=== PATIENT | female | born 2000 | race Caucasian/White ===

== ENCOUNTER 2021-05-13 15:27 | Outpatient (CLI) | payer OTHER ==
[~2021-05-13] VITALS: Ht 154.9 cm; Wt 77.7 kg
[2021-05-13 15:43] VITALS: BP 114/68
[2021-05-13] MEDS ORDERED: PRENTAB9 PO ×3 (15:48)
[2021-05-13] MEDS ORDERED: LR 1,000 ML IV ONE (16:40)
[2021-05-13] MEDS ORDERED: BETAMETHASONE SOLUSPAN 6MG/ML 5ML VIAL (J0702 PER 3MG) IM SCH (17:00)
[2021-05-13 17:10] LABS: HEMATOCRIT 33.9 % (36.0-47.0); HEMOGLOBIN 11.2 g/dl (12.0-15.5); MEAN CORPUSCULAR HEMOGLOBIN 30.2 pg (27.0-33.0); MEAN CORPUSCULAR VOLUME 91.4 fl (80.0-96.0); PLATELET COUNT, AUTOMATED 246 10^3/uL (150-450); RED BLOOD COUNT 3.71 10^6/uL (4.00-5.40); WHITE BLOOD COUNT 13.4 10^3/uL (4.0-10.0)
[2021-05-13 17:18] VITALS: BP 99/56
[2021-05-13 17:25] LABS: APPEARANCE, URINE CLOUDY (CLEAR); BACTERIA, URINE AUTO NEGATIVE (NEGATIVE); BILIRUBIN, URINE AUTO NEGATIVE (NEGATIVE); BLOOD, URINE BLOOD 1+ (NEGATIVE); COLOR, URINE AMBER (YELLOW); GLUCOSE, URINE (UA) AUTO NEGATIVE (NEGATIVE); KETONE, URINE AUTO 1+ mg/dL (NEGATIVE); LEUKOCYTE ESTERASE, URINE AUTO 1+ (NEGATIVE); MUCUS, URINE LARGE (NEGATIVE); NITRITE, URINE AUTO NEGATIVE (NEGATIVE); PROTEIN, URINE AUTO 2+ mg/dL (NEGATIVE); RBC, URINE AUTO 57 /HPF (0-3); SQUAMOUS EPITHELIAL CELL UR AU 7 /HPF (0-6); WBC, URINE AUTO 10 /HPF (0-3)
--- NOTE | 2021-05-13 18:18 | REP ---
INDICATION: previous classical now 34 weks tarah COMPARISON: None. TECHNIQUE: Transabdominal obstetrical ultrasound with color Doppler evaluation. FINDINGS: Examination demonstrates a single live intrauterine in breech presentation. motion is identified by technologist. Placenta is noted fundal and grade 2 without evidence for placenta previa or abruption. Amniotic fluid volume is normal. Cervix measures 3.5 cm in length and appears closed Technologist describes myometrial thinning in the lower uterine segment measuring roughly 2.0 mm thickness. Selected gestational age: 33 weeks 4 days with VAMSHI 06/27/2021. Gestational age by current measurements 35 weeks 0 days with VAMSHI 06/17/2021. FHR equals 155 beats per minute. BPD: 8.8 cm at 35 weeks 4 days HC: 31.7 cm at 35 weeks 5 days AC: 30.5 cm at 34 weeks 3 days FL: 6.7 cm at 34 weeks 2 days HL: 6.0 cm at 34 weeks 5 days HC/AC: 1.04 Estimated weight 2483 grams (74thpercentile). LAWRENCE: 12.4 cm (8.2-24.7) Umbilical artery SD ratio: 2.57 (1.75-3.72) Biophysical profile score: 8/8 IMPRESSION: Single live advanced gestation in breech presentation demonstrating appropriate estimated weight and amniotic fluid volume. Biophysical profile score equals 8/8. <Electronically signed by Emmanuel Barron > 05/13/21 6204
[2021-05-13 18:29] VITALS: BP 104/55
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
[2021-05-13 21:31] VITALS: BP 117/68
[2021-05-13] MEDS ORDERED: LR 1,000 ML IV SCH (21:35)
--- NOTE | 2021-05-13 23:59 | IPNPDOC ---
Text Note Date of Service The patient was seen on 05/13/21. NOTE 05/13/21 reviewed all lab results patient requested to go home and return velma orrow for her second beta shot reviewed signs labor and uterine pain if need rtc for evaluation. patient still dehydrated despite litre of fluid encouraged to drink more . discharged undelivered VS,Fishbone, I+O VS, Fishbone, I+O Laboratory Tests 05/13/21 16:52 Vital Signs Date Time Temp Pulse Resp B/P (MAP) Pulse Ox O2 Delivery O2 Flow Rate FiO2 05/13/21 21:31 98.4 80 117/68 (84) 05/13/21 18:29 18 Arash Bella MD May 13, 2021 23:59
== END 2021-05-13 21:45 | disposition home or self-care (01) ==
LOC: M LDO 15:27
PROVIDERS: ATTEND Obstetrics & Gynecology
DX: O60.03 Preterm labor without delivery, third trimester (principal); O34.211 Maternal care for low transverse scar from previous cesarean delivery; Z3A.34 34 weeks gestation of pregnancy; Z91.040 Latex allergy status
CPT/HCPCS: 59025; 76811; 76817; 76819; 76820; 81001; 85027; 87086; 96360; 96361; 96372; G0378; G0463; J0702; U0002

== ENCOUNTER 2021-05-14 17:13 | Outpatient (CLI) | payer OTHER ==
[~2021-05-14] VITALS: Ht 154.9 cm; Wt 79.7 kg
[~2021-05-14 17:13] MED LIST: PRENTAB9 PO
[2021-05-14] MEDS ORDERED: BETAMETHASONE SOLUSPAN 6MG/ML 5ML VIAL (J0702 PER 3MG) IM ONE (17:25)
[2021-05-14 17:32] VITALS: BP 104/58
[2021-05-14 18:27] LABS: APPEARANCE, URINE CLEAR (CLEAR); BACTERIA, URINE AUTO 1+ (NEGATIVE); BILIRUBIN, URINE AUTO NEGATIVE (NEGATIVE); BLOOD, URINE BLOOD 1+ (NEGATIVE); COLOR, URINE YELLOW (YELLOW); GLUCOSE, URINE (UA) AUTO NEGATIVE (NEGATIVE); KETONE, URINE AUTO NEGATIVE (NEGATIVE); LEUKOCYTE ESTERASE, URINE AUTO TRACE (NEGATIVE); NITRITE, URINE AUTO NEGATIVE (NEGATIVE); PROTEIN, URINE AUTO NEGATIVE (NEGATIVE); RBC, URINE AUTO 3 /HPF (0-3); SPECIFIC GRAVITY URINE AUTO 1.006 (1.002-1.035); SQUAMOUS EPITHELIAL CELL UR AU 1 /HPF (0-6); UROBILINOGEN, URINE AUTO 0.2 mg/dL (0.0-2.0); WBC, URINE AUTO 1 /HPF (0-3)
--- NOTE | 2021-05-14 18:51 | REP ---
INDICATION: history contractions previous cs x 3 COMPARISON: 05/13/2021 TECHNIQUE: Transabdominal obstetrical ultrasound with color Doppler evaluation. FINDINGS: Examination demonstrates a single live intrauterine in breech presentation. motion is identified by technologist. Placenta is noted fundal and grade 2 without evidence for placenta previa or abruption. Amniotic fluid volume is normal. Cervix measures 3.2 cm in length and appears closed. Myometrium at the level of the lower uterine segment measures 1.5 mm thickness. Selected gestational age: 33 weeks 5 days with VAMSHI 06/27/2021. FHR equals 131 beats per minute. LAWRENCE: 13.0 cm (8.2-24.7) Umbilical artery SD ratio: 1.96 (1.75-3.71) Biophysical profile score: 8/8 IMPRESSION: 1. Single live intrauterine in breech presentation demonstrating normal amniotic fluid volume and biophysical profile score. 2. Myometrial thickness at the lower uterine segment measures down to 1.5 mm. <Electronically signed by Emmanuel Barron > 05/14/21 3648
--- NOTE | 2021-05-14 20:27 | IPNPDOC ---
Text Note Date of Service The patient was seen on 05/14/21. NOTE Vital Signs Label Value Date Time Blood Pressure Assessment 104/58 (73) 05/14/21 1732 Blood Pressure Assessment 104/58 (73) 05/14/21 1732 Source Automatic Cuff (NIBP) Respiratory Rate 18 bpm 05/14/21 1732 Respiratory Rate 18 bpm 05/14/21 1732 Pulse 79 05/14/21 1732 Pulse 79 05/14/21 1732 Patient Temperature 99.0 degrees F 05/14/21 1732 Temperature Source Temporal 05/14/21 1732 Patient Temperature 99.0 degrees F 05/14/21 1732 Temperature Source Temporal 05/14/21 1732 Item Value Date Time Urine Color YELLOW 05/14/21 1801 Urine Appearance CLEAR 05/14/21 1801 Urine pH 6.0 UNITS 05/14/21 1801 Urine Specific [place] 1.006 05/14/21 1801 Urine Protein NEGATIVE mg/dL 05/14/21 1801 Urine Glucose (Auto)(UA) NEGATIVE mg/dL 05/14/21 1801 Urine Ketones (Auto) NEGATIVE mg/dL 05/14/21 1801 Urine Blood 1+ H 05/14/21 1801 Urine Nitrite NEGATIVE 05/14/21 1801 Urine Bilirubin NEGATIVE 05/14/21 1801 Urine Urobilinogen 0.2 mg/dL 05/14/21 1801 Urine Leukocyte Esterase (Auto) TRACE H 05/14/21 1801 Urine WBC (Auto) 1 /HPF 05/14/21 1801 Urine RBC (Auto) 3 /HPF 05/14/21 1801 Urine Hyaline Casts (Auto) 0 /LPF 05/14/21 1801 Urine Bacteria (Auto) 1+ H 05/14/21 1801 Urine Squamous Epithelial Cells 1 /HPF 05/14/21 1801 05/14/21 1743 pm PATIENT SEEN TODAY SCHEDULED APPOINTMENT FOR SECOND BETA SHOT REVIEW US WITH BPP AND URINE EVALUATION. PATIENT DID NOT EAT TODAY DID DRINK APPROPRIATE FLUIDS. UTERINE IRRITABILITY SAME LAST 3 DAYS NO INCREASE NO DECREASE INTENSITY, PATIENT STILL FEELS SHOULD HAVE REPEAT CS NOW AT 33.6 WEEKS PER HER PROVIDER IF HAVING CONTRACTIONS PRIOR TO SCHEDULED CS AT 37 WEEKS 06/06/21. TODAY URINE IMPROVED US WITH BPP SAME NO CHANGE BPP 8/8 CERVIX NO FUNNELING LAWRENCE NORMAL STILL BREECH. REVIEWED ALL RESULTS REVIEWED INCISION SITE OFFERED OPTION TERBUTALINE FOR UTERINE IRRITABILITY . PATIENT REQUESTED TO SEE NEW PROVIDER TOMORROW GAVE NUMBER TO CALL ALSO REVIEWED PROM LABOR BLEEDING [facility] INCISIONAL ACUTE PAIN. EXPRESSED UNDERSTANDING DISCHARGED UNDELIVERED . SPENT OVER 60 MINUTES EDUCATIONAL COMPONENT PRIOR TO DISCHARGE . NAME: SALLIE ANGELES DATE OF : 2000 AGE: 21 SEX: F REPORT #: [id number] ROOM: [facility] TECHNOLOGIST: LEANNA DOCTOR: Arash Bella MD Ordered for Date&Time: 05/13/21 1640 cc: [~ rep ct ivnm] Service Date&Time: 05/13/21 3044 EXAMINATION REQUESTED: US OBS SINGEL GEST REASON FOR PATIENT VISIT: LABOR CHECK REASON FOR EXAM/COMMENT: previous classical now 34 weks tarah INDICATION: previous classical now 34 weks tarah COMPARISON: None. TECHNIQUE: Transabdominal obstetrical ultrasound with color Doppler evaluation. FINDINGS: Examination demonstrates a single live intrauterine in breech presentation. motion is identified by technologist. Placenta is noted fundal and grade 2 without evidence for placenta previa or abruption. Amniotic fluid volume is normal. Cervix measures 3.5 cm in length and appears closed Technologist describes myometrial thinning in the lower uterine segment measuring roughly 2.0 mm thickness. Selected gestational age: 33 weeks 4 days with VAMSHI 06/27/2021. Gestational age by current measurements 35 weeks 0 days with VAMSHI 06/17/2021. FHR equals 155 beats per minute. BPD: 8.8 cm at 35 weeks 4 days HC: 31.7 cm at 35 weeks 5 days AC: 30.5 cm at 34 weeks 3 days FL: 6.7 cm at 34 weeks 2 days HL: 6.0 cm at 34 weeks 5 days HC/AC: 1.04 Estimated weight 2483 grams (74thpercentile). LAWRENCE: 12.4 cm (8.2-24.7) Umbilical artery SD ratio: 2.57 (1.75-3.72) Biophysical profile score: 8/8 IMPRESSION: Single live advanced gestation in breech presentation demonstrating appropriate estimated weight and amniotic fluid volume. Biophysical profile score equals 8/8. NAME: SALLIE ANGELES DATE OF : 2000 AGE: 21 SEX: F REPORT #: [id number] [facility] TECHNOLOGIST: LEANNA DOCTOR: Arash Bella MD Ordered for Date&Time: 05/13/21 1640 cc: [~ rep ct ivnm] Service Date&Time: 05/13/211756 EXAMINATION REQUESTED: US OBS SINGEL GEST REASON FOR PATIENT VISIT: LABOR CHECK REASON FOR EXAM/COMMENT: previous classical now 34 weks tarah INDICATION: previous classical now 34 weks tarah COMPARISON: None. TECHNIQUE: Transabdominal obstetrical ultrasound with color Doppler evaluation. FINDINGS: Examination demonstrates a single live intrauterine in breech presentation. motion is identified by technologist. Placenta is noted fundal and grade 2 without evidence for placenta previa or abruption. Amniotic fluid volume is normal. Cervix measures 3.5 cm in length and appears closed Technologist describes myometrial thinning in the lower uterine segment measuring roughly 2.0 mm thickness. Selected gestational age: 33 weeks 4 days with VAMSHI 06/27/2021. Gestational age by current measurements 35 weeks 0 days with VAMSHI 06/17/2021. FHR equals 155 beats per minute. BPD: 8.8 cm at 35 weeks 4 days HC: 31.7 cm at 35 weeks 5 days AC: 30.5 cm at 34 weeks 3 days FL: 6.7 cm at 34 weeks 2 days HL: 6.0 cm at 34 weeks 5 days HC/AC: 1.04 Estimated weight 2483 grams (74thpercentile). LAWRENCE: 12.4 cm (8.2-24.7) Umbilical artery SD ratio: 2.57 (1.75-3.72) Biophysical profile score: 8/8 IMPRESSION: Single live advanced gestation in breech presentation demonstrating appropriate estimated weight and amniotic fluid volume. Biophysical profile score equals 8/8. <Electronically signed by Emmanuel Barron > 05/13/211813 NAME: SALLIE ANGELES DATE OF : 2000 AGE: 21 SEX: F REPORT #: [id number] ROOM: [facility] TECHNOLOGIST: LEANNA DOCTOR: Arash Bella MD Ordered for Date&Time: 05/13/21 1640 cc: [~ rep ct ivnm] Service Date&Time: 05/13/211756 EXAMINATION REQUESTED: US OBS SINGEL GEST REASON FOR PATIENT VISIT: LABOR CHECK REASON FOR EXAM/COMMENT: previous classical 34 weks tarah INDICATION: previous classical weks tarah COMPARISON: None. TECHNIQUE: Transabdominal obstetrical ultrasound with color Doppler evaluation. FINDINGS: Examination demonstrates a single live intrauterine in breech presentation. motion is identified by technologist. Placenta is noted fundal and grade 2 without evidence for placenta previa or abruption. Amniotic fluid volume is normal. Cervix measures 3.5 cm in length and appears closed Technologist describes myometrial thinning in the lower uterine segment measuring roughly 2.0 mm thickness. Selected gestational age: 33 weeks 4 days with VAMSHI 06/27/2021. Gestational age by current measurements 35 weeks 0 days with VAMSHI 06/17/2021. FHR equals 155 beats per minute. BPD: 8.8 cm at 35 weeks 4 days HC: 31.7 cm at 35 weeks 5 days AC: 30.5 cm at 34 weeks 3 days FL: 6.7 cm at 34 weeks 2 days HL: 6.0 cm at 34 weeks 5 days HC/AC: 1.04 Estimated weight 2483 grams (74thpercentile). LAWRENCE: 12.4 cm (8.2-24.7) Umbilical artery SD ratio: 2.57 (1.75-3.72) Biophysical profile score: 8/8 IMPRESSION: Single live advanced gestation in breech presentation demonstrating appropriate estimated weight and amniotic fluid volume. Biophysical profile score equals 8/8. <Electronically signed by Emmanuel Barron > 05/13/211813 NAME: SALLIE ANGELES DATE OF : 2000 AGE: 21 SEX: F REPORT #: [id number] ROOM: [facility] TECHNOLOGIST: LEANNA DOCTOR: Arash Bella MD Ordered for Date&Time: 05/13/21 1640 cc: [~ rep ct ivnm] Service Date&Time: 05/13/211756 EXAMINATION REQUESTED: US OBS SINGEL GEST REASON FOR PATIENT VISIT: LABOR CHECK REASON FOR EXAM/COMMENT: previous classical 34 weks tarah INDICATION: previous classical now 34 weks tarah COMPARISON: None. TECHNIQUE: Transabdominal obstetrical ultrasound with color Doppler evaluation. FINDINGS: Examination demonstrates a single live intrauterine in breech presentation. motion is identified by technologist. Placenta is noted fundal and grade 2 without evidence for placenta previa or abruption. Amniotic fluid volume is normal. Cervix measures 3.5 cm in length and appears closed Technologist describes myometrial thinning in the lower uterine segment measuring roughly 2.0 mm thickness. Selected gestational age: 33 weeks 4 days with VAMSHI 06/27/2021. Gestational age by current measurements 35 weeks 0 days with VAMSHI 06/17/2021. FHR equals 155 beats per minute. BPD: 8.8 cm at 35 weeks 4 days HC: 31.7 cm at 35 weeks 5 days AC: 30.5 cm at 34 weeks 3 days FL: 6.7 cm at 34 weeks 2 days HL: 6.0 cm at 34 weeks 5 days HC/AC: 1.04 Estimated weight 2483 grams (74thpercentile). LAWRENCE: 12.4 cm (8.2-24.7) Umbilical artery SD ratio: 2.57 (1.75-3.72) Biophysical profile score: 03/12 IMPRESSION: Single live advanced gestation in breech presentation demonstrating appropriate estimated weight and amniotic fluid volume. EXAMINATION REQUESTED: BPP W/O NON STRESS TEST REASON FOR PATIENT VISIT: BETA INJECTION REASON FOR EXAM/COMMENT: history contractions previous cs x 3 INDICATION: history contractions previous cs x 3 COMPARISON: 05/13/2021 TECHNIQUE: Transabdominal obstetrical ultrasound with color Doppler evaluation. FINDINGS: Examination demonstrates a single live intrauterine in breech presentation. motion is identified by technologist. Placenta is noted fundal and grade 2 without evidence for placenta previa or abruption. Amniotic fluid volume is normal. Cervix measures 3.2 cm in length and appears closed. Myometrium at the level of the lower uterine segment measures 1.5 mm thickness. Selected gestational age: 33 weeks 5 days with VAMSHI 06/27/2021. FHR equals 131 beats per minute. LAWRENCE: 13.0 cm (8.2-24.7) Umbilical artery SD ratio: 1.96 (1.75-3.71) Biophysical profile score: 8/8 IMPRESSION: 1. Single live intrauterine in breech presentation demonstrating normal amniotic fluid volume and biophysical profile score. 2. Myometrial thickness at the lower uterine segment measures down to 1.5 mm. <Electronically signed by Emmanuel Barron > 05/14/21 184 Biophysical profile score equals 8/8. <Electronically signed by Emmanuel Barron > 05/13/21 181 DD: Emmanuel Barron MD 05/13/21 180 DT: DESIREE 05/13/211813 DS: [facility] 05/13/21 1807 05/13/21 180 DD: Emmanuel Barron MD 05/13/21 180 13 DS: [facility] 05/13/21 1807 05/13/21 180 DD: Emmanuel Barron MD 05/13/21 180 13 DS: [facility] 05/13/21 18005/13/211806 <Electronically signed by Emmanuel Barron > 05/13/211813 DD: Emmanuel Barron MD 05/13/211806 13 DS: [facility] 05/13/21180605/13/211806 VS,Fishbone, I+O VS, Fishbone, I+O Vital Signs Date Time Temp Pulse Resp B/P (MAP) Pulse Ox O2 Delivery O2 Flow Rate FiO2 05/14/21 17:32 99.0 79 18 104/58 (73) Arash Bella MD May 14, 2021 20:03
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
== END 2021-05-14 19:43 | disposition home or self-care (01) ==
LOC: M LDO 17:13
PROVIDERS: ATTEND Obstetrics & Gynecology
DX: O60.03 Preterm labor without delivery, third trimester (principal); O34.211 Maternal care for low transverse scar from previous cesarean delivery; Z3A.34 34 weeks gestation of pregnancy; Z91.040 Latex allergy status
CPT/HCPCS: 59025; 76817; 76819; 76820; 81001; 96372; G0378; G0463; J0702

== ENCOUNTER 2021-05-15 16:34 | Inpatient (IN) | payer OTHER ==
[2021-05-15] VITALS (13 sets, daily range): BP systolic 105–137; BP diastolic 55–75
[~2021-05-15] VITALS: Ht 154.9 cm; Wt 79.1 kg
[2021-05-15] MEDS ORDERED: HOME MED LIST COMPLETE! XX SCH (17:00)
[2021-05-15] MEDS ORDERED: CARBOPROST TROMETHAMINE 250 MCG/ML AMP IM PRN (18:10)
[2021-05-15] MEDS ORDERED: ceFAZolin SOD 2 GM in IV 1 EA IV ONE (18:10)
[2021-05-15] MEDS ORDERED: OXYTOCIN DRIP 30 UNITS in IV 1 EA IV PRN ×4 (18:10)
[2021-05-15] MEDS ORDERED: LR 1,000 ML IV SCH ×2 (18:10→22:00)
[2021-05-15] MEDS ORDERED: METHYLERGONOVINE MALEATE 0.2 MG/ML VIAL (J2210) IM PRN (18:10)
[2021-05-15] MEDS ORDERED: TRANEXAMIC ACID INJection 1,000 MG in NS 100 ML IV PRN (18:10)
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
[2021-05-15 18:53] LABS: HEMATOCRIT 33.5 % (36.0-47.0); HEMOGLOBIN 10.8 g/dl (12.0-15.5); MEAN CORPUSCULAR HEMOGLOBIN 30.4 pg (27.0-33.0); MEAN CORPUSCULAR HGB CONC 32.2 g/dl (32.0-36.5); MEAN CORPUSCULAR VOLUME 94.4 fl (80.0-96.0); PLATELET COUNT, AUTOMATED 259 10^3/uL (150-450); RED BLOOD COUNT 3.55 10^6/uL (4.00-5.40); WHITE BLOOD COUNT 16.5 10^3/uL (4.0-10.0)
[2021-05-15] MEDS ORDERED: BICITRA 30ML SOLN UDC PO ONE (19:00)
[2021-05-15] MEDS ORDERED: MORPHINE PRES-FREE INJ 10 MG/10 ML VIAL (J2274) As Ordered ONE (19:43)
[2021-05-15] MEDS ORDERED: OXYTOCIN 30 UNITS IN 0.9% NaCl 500ML IV BAG (J2590) As Ordered ONE ×2 (19:43→22:10)
[2021-05-15] MEDS ORDERED: ePHEDrine SULFATE 25 MG/5 ML(5MG/ML) SYRINGE As Ordered ONE (19:44)
[2021-05-15] MEDS ORDERED: PHENYLephrine 500MCG 5ML (100MCG/ML) SYRINGE As Ordered ONE (19:44)
[2021-05-15] MEDS ORDERED: diphenhydrAMINE 50MG/ML VIAL (J1200) IV PRN (20:15)
[2021-05-15] MEDS ORDERED: ONDANSETRON 4MG/2ML VIAL IV PRN ×3 (20:15→22:10)
[2021-05-15] MEDS ORDERED: NALOXONE INJ 0.4MG/1ML VIAL (J2310 PER 1MG) IV PRN ×2 (20:15)
[2021-05-15] MEDS ORDERED: NALBUPHINE HCL 10 MG/ML AMP (J2300) IV PRN (20:15)
[2021-05-15] MEDS ORDERED: METOCLOPRAMIDE INJ 10MG/2ML VIAL (J2765 PER 1) IV PRN (20:15)
[2021-05-15] MEDS ORDERED: MEPERIDINE 50 MG/ML 1ML VIAL (J2175) As Ordered ONE (20:48)
[2021-05-15] MEDS ORDERED: ONDANSETRON 4MG/2ML VIAL As Ordered ONE (20:50)
[2021-05-15] MEDS ORDERED: fentaNYL 100 MCG/2 ML INJECTION (J3010) As Ordered ONE ×2 (20:52→21:25)
[2021-05-15] MEDS ORDERED: KETOROLAC 60MG 2ML VIAL As Ordered ONE (20:58)
[2021-05-15] MEDS ORDERED: propofoL 200 MG/20 ML VIAL As Ordered ONE (21:27)
[2021-05-15] MEDS ORDERED: PERCOCET 5MG/325MG TAB PO PRN (22:00)
[2021-05-15] MEDS ORDERED: fentaNYL 100 MCG/2 ML INJECTION (J3010) IV PRN (22:00)
[2021-05-15] MEDS ORDERED: oxyCODONE 5MG TAB PO PRN ×2 (22:10)
[2021-05-15] MEDS: ACETAMINOPHEN 500 MG TAB PO SCH (22:10)
[2021-05-15] MEDS ORDERED: RHOGAM 300 MCG (1500 IU) INJ (J2790) IM SCH (22:10)
[2021-05-15] MEDS: LR 1,000 ML IV SCH (22:10)
[2021-05-15] MEDS ORDERED: SIMETHICONE 80MG CHEW TAB PO PRN (22:10)
[2021-05-15] MEDS ORDERED: PROMETHAZINE 25 MG TAB PO PRN (22:10)
[2021-05-15] MEDS ORDERED: DOCUSATE SODIUM 100MG CAPSULE PO PRN (22:10)
[2021-05-15] MEDS ORDERED: MORPHINE 2 MG/ML 1ML VIAL (J2270) IV PRN (22:10)
[2021-05-15] MEDS ORDERED: MEASLES,MUMPS,RUBELLA VACCINE INJ (MMR-II) (90707) SC SCH (22:10)
[2021-05-15] MEDS ORDERED: NORCO, ANEXSIA 5/325MG TABLET (HYDROcodone/ACETAMINOPHEN) As Ordered ONE (22:26)
[2021-05-15] MEDS ORDERED: PERCOCET 5MG/325MG TAB As Ordered ONE (22:37)
--- NOTE | 2021-05-15 22:44 | ROOPDOC ---
[facility] Report Of Operation Report of Operation DATE OF PROCEDURE: 05/15/21 PREPROCEDURE DIAGNOSES: -History of classical delivery - contractions -Lower uterine segment myometrial thickness of 1.5mm POSTPROCEDURE DIAGNOSES: status post repeat low transverse delivery PROCEDURE PERFORMED: repeat low transverse delivery SURGEON: Cori Giraldo DO ACCOUNTS ADJUSTABLE CLERK: Kala Rivas CNM whose assistance with retraction and delivery of the fetus was vital to completion of the case ANESTHESIA: spinal ESTIMATED BLOOD LOSS: Approximately 700 mL. COMPLICATIONS: none REMARKS: none FINDINGS: dense adhesions between fascia and rectus muscles, bladder adhesions on anterior uterus; otherwise normal appearing uterus, ovaries and tubes. Live female delivered at 2045, apgars 9/9; weight 2330g, 5# 2oz. SPECIMENS REMOVED: bilateral uterine tubes DESCRIPTION OF PROCEDURE: After obtaining informed consent the patient was brought to the operating suite and prepped/draped in the usual manner. A timeout was called and the patient name, date of and procedure to be performed were verified. A transverse incision was made following the line of the previous incision. This was carried down to the fascia which had dense adhesions to the rectus muscles and the rectus muscles appeared to be in some points bilaterally. These adhesions were taken down sharply superiorly and inferiorly. The peritoneum was entered during this process. Left sided peritoneal adhesions were palpated, found to be clear of other tissue, and taken down. No more peritoneal adhesions were palpated and the peritoneum was stretch bluntly. A bladder flap was created until the lower uterine segment was visualized. The bladder blade was placed. The uterus was incised with the scalpel and entered bluntly with clear fluid noted. The sacrum was delivered followed by each leg individually by flexing the hip. The arms were then delivered individually by sweeping across the chest. The was then placed belly to belly with the mother and the head delivered. The cord was clamped, cut and the handed to awaiting warehouse lead. COrd gases were obtained. The placenta delivered spontaneously and the uterus was exteriorized. The interior of the uterus was wiped with a laparotomy sponge. The hysterotomy was closed with 0-vicryl in running locking fashion. Some areas of bleeding in the lower hysterotomy were sutured with 3-0 vicryl and 0-vicryl figure of eight sutures. The ligasure device was then used to transect and remove each uterine tube via coagulation and cutting. Hemostasis was noted. The uterus was returned to the abdomen. The hysterotomy was inspected and an area of bleeding on the left side of the hysterotomy was secured with 0-vicryl figure of eight suture. There was some oozing on the lower endopelvic fascia and Arrista was then placed and hemostasis noted. The fascia was closed with 0-vicryl in running fashion. The subcutaneous layer was then irrigated and closed with 3-0 vicryl interrupted. The skin was closed with 4-0 monocryl. An optifoam dressing was placed. The vagina was cleared of all clots, uterus at umbilicus -1. The patient was left in good condition en route to the PACU. CORI GIRALDO. May 15, 2021 22:44
[2021-05-16] VITALS (9 sets, daily range): BP systolic 86–109; BP diastolic 46–55
[2021-05-16] MEDS: KETOROLAC 30 MG/ML 1ML VIAL IV SCH ×3 (03:57→16:00)
[2021-05-16] MEDS: ACETAMINOPHEN 500 MG TAB PO SCH ×4 (03:59→22:05)
--- NOTE | 2021-05-16 06:06 | IPNPDOC ---
Progress Note Date of Service: May 16, 2021 Progress Note SUBJECT: Shannan Joseph is a 21-year-old 7 now Para 1334 status post repeat low transverse delivery at 33+6 indicated for history of classical delivery, contractions, and lower uterine segment 1.5mm. Live female delivered at 2044, apgars 9/9; weight 2330g, 5# 2oz. doing well day # 1. She has been ambulating, has valadez in place and tolerating regular diet. Breast feeding without issue. Reports lochia is small. Patient is ambulating well. OBJECTIVE: VITAL SIGNS: Within normal limits, afebrile. Alert and oriented times three. Breath sounds clear to auscultation. Heart rate: Regular rate and rhythm, no murmurs, rubs or gallops. Abdomen: Fundus firm at U-2. Soft, appropriate postoperative tenderness, incision covered with optifoam with no strikethrough Negative calf tenderness bilaterally. ASSESSMENT: as above doing well on day 1. Vitals within normal limits, afebrile, hemodynamically stable with no evidence of infection. PLAN: 1. Discharge to home after 48 hours. 2. Tylenol and Motrin for pain, oxycodone for breakthrough 3. Encourage breast feeding and ambulation, remove valadez. 4. salpingectomy bilateral completed 5. 2-week incision check then routine PP visit in 6 weeks in clinic. VS, I&O, 24H, Fishbone Vital Signs/I&O Vital Signs Date Time Temp Pulse Resp B/P (MAP) Pulse Ox O2 Delivery O2 Flow Rate FiO2 05/16/21 04:00 97.4 60 18 96/55 (69) 98 Room Air I&O- Last 24 Hours up to 6 AM 05/16/21 06:00 Intake Total 1875 ml Output Total 1025 ml Balance 850 ml Laboratory Data 24H LABS Laboratory Tests 2 05/15/21 18:26: Serology Scanned Report Hepatitis B Testing 05/15/21 18:35: Nucleated Red Blood Cells % (auto) 0.0, Syphilis Serology NONREACTIVE CBC/BMP Laboratory Tests 05/15/21 18:35 CORI CULLEN DO May 16, 2021 06:06
[2021-05-16] MEDS: LR 1,000 ML IV SCH (06:40)
[2021-05-16] MEDS: PRENATAL VITAMINS CHEWABLE TABLET PO SCH (09:00)
[2021-05-16] MEDS ORDERED: PRENATAL VITAMINS CHEWABLE TABLET PO SCH (09:00)
[2021-05-16 09:16] LABS: HEMATOCRIT 29.6 % (36.0-47.0); HEMOGLOBIN 9.5 g/dl (12.0-15.5); MEAN CORPUSCULAR HEMOGLOBIN 30.5 pg (27.0-33.0); MEAN CORPUSCULAR HGB CONC 32.1 g/dl (32.0-36.5); MEAN CORPUSCULAR VOLUME 95.2 fl (80.0-96.0); PLATELET COUNT, AUTOMATED 191 10^3/uL (150-450); RED BLOOD COUNT 3.11 10^6/uL (4.00-5.40); WHITE BLOOD COUNT 13.7 10^3/uL (4.0-10.0)
[2021-05-16] MEDS ORDERED: SLF 3 ML SYR IV PRN (11:05)
[2021-05-16] MEDS: SLF 3 ML SYR IV SCH ×2 (14:00→21:53)
[2021-05-17] MEDS: IBUPROFEN 800 MG TAB PO SCH ×2 (00:08→07:52)
[2021-05-17 02:28] VITALS: BP 113/54
[2021-05-17] MEDS: ACETAMINOPHEN 500 MG TAB PO SCH ×3 (04:23→10:54)
[2021-05-17] MEDS: SLF 3 ML SYR IV SCH ×2 (05:21→14:00)
[2021-05-17 06:25] VITALS: BP 128/64
[2021-05-17] MEDS: PRENATAL VITAMINS CHEWABLE TABLET PO SCH (07:51)
--- NOTE | 2021-05-17 13:38 | OBDS ---
[facility] Obstetrical Discharge Sum. Obstetrical Discharge Summary Date: May 17, 2021 Anesthesia: Regional Anesthesia A/P, Post Course List any complications Admission diagnosis: .hx of classical C/S , delivery, satisfied parity Discharge diagnosis: same as above Condition at Discharge:stable Discharge Instructions: Home Activity: Pelvic rest for 6 weeks, no,lifting anything heavier than baby Diet: regular Medications: Cot[place] Follow-up: 2 weeks and 6 weeks Other: Shannan Joseph is a 21-year-old 7 now Para 1334 status post repeat low transverse delivery at 33+6 indicated for history of classical delivery, contractions, and lower uterine segment 1.5mm. Live female delivered at 5, apgars 9/9; weight 2330g, 5# 2oz. doing well day # 2. At time of discharge, she was ambulating and voiding without issues. he pain was controlled and she was was pumping/bottle feeding without issues. she had no other concerns. OBJECTIVE: VITAL SIGNS: Within normal limits, afebrile. Alert and oriented times three. Breath sounds clear to auscultation. Heart rate: Regular rate and rhythm, no murmurs, rubs or gallops. Abdomen: Fundus firm at U-2. Soft, appropriate postoperative tenderness, incision covered with optifoam with no strikethrough Negative calf tenderness bilaterally. ASSESSMENT: as above doing well on day 1. Vitals within normal limits, afebrile, hemodynamically stable with no evidence of infection. PLAN: 1. Discharge to home after today. 2. Tylenol and Motrin for pain, oxycodone for breakthrough 3. 2-week incision check then routine PP visit in 6 weeks in clinic. NOVA JEAN MD May 17, 2021 13:38
[2021-05-17] MEDS ORDERED: ACET-683 PO (13:42)
[2021-05-17] MEDS ORDERED: IBUP80TA PO (13:42)
== END 2021-05-17 15:55 | disposition home or self-care (01) | DRG 784 ==
LOC: M LDO 16:34 → M LDI 18:07 → M OBS 23:37
PROVIDERS: ADMIT Obstetrics & Gynecology; ATTEND Obstetrics & Gynecology
PROC: 0UB70ZZ Excision of Bilateral Fallopian Tubes, Open Approach (ICD-10-PCS; 2021-05-15)
PROC: 10D00Z1 Extraction of Products of Conception, Low, Open Approach (ICD-10-PCS; principal; 2021-05-15 20:00)
DX: O34.211 Maternal care for low transverse scar from previous cesarean delivery (principal); O47.1 False labor at or after 37 completed weeks of gestation; Z3A.33 33 weeks gestation of pregnancy; Z37.0 Single live birth; Z30.2 Encounter for sterilization

== ENCOUNTER → 2023-04-19 | Outpatient (CLI) | payer OTHER ==
[~2023-04-19] MED LIST changes: +ACET-683 PO; +IBUP80TA PO
== END ==
LOC: M WHC 08:49
PROVIDERS: ATTEND Family Medicine
DX: R10.9 Unspecified abdominal pain (principal)